=== PATIENT | male | born 1960 | race Caucasian/White ===

== ENCOUNTER 2023-09-23 07:41 | Day surgery (SDC) | payer OTHER, SELFPAY ==
--- NOTE | 2023-09-23 | CT_ITS ---
The [address] [address] Patient Name: FLOR BEST MRN: [id number] date: 1960 Sex: M Assigned Patient Location: CT Current Patient Location: Accession/Order Number: [id number] Exam Date: 09/23/2023 09:10 Report Date: 09/23/2023 10:28 At the request of: ALDA MILLER Procedure: CT knee RT w con EXAMINATION: CT knee RT w con HISTORY: Right Knee Internal Derangement COMPARISON: No relevant comparison available. TECHNIQUE: A complete multi-planar MRI was performed. FINDINGS: MEDIAL COMPARTMENT MEDIAL MENISCUS: Small, thin vertical tear of the posterior junction appearing to extend from the inner to the outer margin. CARTILAGE: Marked thinning of the cartilage of the femoral condyle and tibial plateau without appreciable focal defect. BONES: No fracture, subchondral cyst, or bone lesion. MCL AND MEDIAL CAPSULE: No appreciable thickening of the ligament or capsule. LATERAL COMPARTMENT LATERAL MENISCUS: No visible tear or contour abnormality. CARTILAGE: No visible defect. BONES: No fracture or significant arthropathy. LCL/POSTEROLAT COMPLEX: No appreciable thickening. ANTERIOR COMPARTMENT PATELLA: No fracture or significant arthropathy. CARTILAGE: No significant thinning, but there is a small tear/ focal defect involving the medial facet, mid body. TENDONS: No appreciable abnormality. EFFUSION: Joint space is filled with radiopaque contrast for CT arthrography. No loose bodies. ACL: Appears to be intact. PCL: Appears to be intact. OTHER: Negative. CT/CT knee RT w con IMPRESSION: 1. Small tear/radial tear of the posterior junction of the medial meniscus which is suspected to extend to the outer margin. 2. Marked thinning of the cartilage overlying the medial femoral condyle and tibial plateau without appreciable focal defect. 3. Small focal tear/defect within the cartilage of the medial facet of the patella. Electronically authenticated by: BEN THOMPSON Date: 09/23/2023 10:28
--- NOTE | 2023-09-23 08:00 | FL_ITS ---
[address] [address] Patient Name: FLOR BEST MRN: [id number] date: 1960 Sex: M Assigned Patient Location: [place] Current Patient Location: [place] Accession/Order Number: [id number] Exam Date: 09/23/2023 08:07 Report Date: 09/23/2023 09:39 At the request of: ALDA MILLER Procedure: FL guided needle placement EXAMINATION: FL arthrogram knee, FL guided needle placement HISTORY: Right Knee Internal Derangement COMPARISON: No relevant comparison available. TECHNIQUE: An arthrogram was performed under fluoroscopic guidance using non-ionic contrast material in the usual sterile manner after obtaining informed consent. Standard level fluoroscopic mode of operation utilized. FINDINGS: JOINT: NEEDLE: 25 gauge, 3.5 spinal needle. MEDICATION: 2 mL buffered 1% lidocaine for subcutaneous anesthesia. Approximately 8 mL injected into joint space consisting of a mixture of 5 mL Omnipaque-300 and 5 mL 1% Xylocaine. TECHNIQUE: Lateral approach under fluoroscopic guidance. CLINICAL: Decreased pain following the injection (5/10 preinjection; 0/10 post injection). COMPLICATIONS: None. OTHER: Negative. FL/FL guided needle placement IMPRESSION: 1. Technically successful right knee arthrogram without complication. 2. Please see separate CT arthrogram report. Electronically authenticated by: BEN THOMPSON Date: 09/23/2023 09:39
--- NOTE | 2023-09-23 08:00 | FL_ITS ---
[address] [address] Patient Name: FLOR BEST MRN: [id number] date: 1960 Sex: M Assigned Patient Location: [place] Current Patient Location: [place] Accession/Order Number: [id number] Exam Date: 09/23/2023 08:07 Report Date: 09/23/2023 09:39 At the request of: ALDA MILLER Procedure: FL arthrogram knee EXAMINATION: FL arthrogram knee, FL guided needle placement HISTORY: Right Knee Internal Derangement COMPARISON: No relevant comparison available. TECHNIQUE: An arthrogram was performed under fluoroscopic guidance using non-ionic contrast material in the usual sterile manner after obtaining informed consent. Standard level fluoroscopic mode of operation utilized. FINDINGS: JOINT: NEEDLE: 25 gauge, 3.5 spinal needle. MEDICATION: 2 mL buffered 1% lidocaine for subcutaneous anesthesia. Approximately 8 mL injected into joint space consisting of a mixture of 5 mL Omnipaque-300 and 5 mL 1% Xylocaine. TECHNIQUE: Lateral approach under fluoroscopic guidance. CLINICAL: Decreased pain following the injection (5/10 preinjection; 0/10 post injection). COMPLICATIONS: None. OTHER: Negative. FL/FL arthrogram knee IMPRESSION: 1. Technically successful right knee arthrogram without complication. 2. Please see separate CT arthrogram report. Electronically authenticated by: BEN THOMPSON Date: 09/23/2023 09:39
[2023-09-23] MEDS: LIDOCAINE HCL 15 ML, SODIUM BICARBONATE 2 MEQ INJ (08:50)
--- NOTE | 2023-09-23 09:33 | SUR.PREOP ---
09/14/23 Pt instructed on procedure, date, time, and prep.
== END 2023-09-23 09:10 | disposition home or self-care (01) ==
PROVIDERS: Radiology Diagnostic Radiology; PCP Family Medicine; Visit Provider Orthopaedic Surgery
DX: M23.91 Unspecified internal derangement of right knee (principal)
CPT/HCPCS: 27369; 73701; 77002; Q9967